=== PATIENT | male | born 1940 | race Two or more races ===

== ENCOUNTER 2023-06-15 12:39 | Emergency (ER) | payer OTHER ==
[~2023-06-15] VITALS: Ht 170.2 cm; Wt 71.7 kg
[2023-06-15] MEDS ORDERED: XARELTO15 MG PO (12:48)
[2023-06-15] MEDS ORDERED: TOPROL XL50 M1 PO (12:48)
[2023-06-15 13:29] LABS: HEMATOCRIT 46.5 % (39.0-48.0); HEMOGLOBIN 15.6 g/dL (13-16.00); MEAN CELL VOLUME 87.8 fL (80.0-100.00); MEAN CORPUSCULAR HEMOGLOBIN 29.5 pg (27.00-32.0); MEAN CORPUSCULAR HGB CONC 33.5 g/dl (32.0-36.0); PLATELET COUNT 257 K/uL (150-450); RED CELL DISTRIBUTION WIDTH 13.5 % (11.5-14.5)
[2023-06-15 13:53] LABS: INR 1.3
[2023-06-15 14:00] LABS: PARTIAL THROMBOPLASTIN TIME 43.6 SECONDS (22.0-34.0); PROTHROMBIN TIME 13.4 SECONDS (9.0-11.5)
[2023-06-15 14:19] LABS: BILIRUBIN TOTAL 0.49 mg/dL (0.3-1.2); CREATININE SERUM 1.38 mg/dL (0.70-1.30); GFR 49.09; POTASSIUM 4.89 mEq/L (3.5-5.1)
[2023-06-15 15:21] LABS: URINE APPEARANCE Clear; URINE BILIRRUBIN Negative (NEGATIVE); URINE BLOOD Negative; URINE COLOR Yellow; URINE GLUCOSE Negative (NEGATIVE); URINE LEUKOCYTE Negative; URINE NITRATE Negative; URINE PROTEIN Negative (NEGATIVE); URINE UROBILINOGEN 0.2 E.U./dl
[2023-06-15 15:25] LABS: URINE RBC 20.9 uL (0.0-20.8); URINE WBC 5.3 uL (0.0-23.2)
[2023-06-15 16:15] LABS: URINE BACTERIA 3.7 uL (0.0-1933); URINE EPITHELIAL CELLS 0.4 uL (0.0-38.8)
[2023-06-15] MEDS ORDERED: ASPIRIN 81 MG TAB.CHEW PO ONE (16:15)
== END 2023-06-15 16:35 | disposition home or self-care (01) ==
LOC: ER 12:39
PROVIDERS: General Practice
DX: G45.9 Transient cerebral ischemic attack, unspecified (principal); R42 Dizziness and giddiness; I10 Essential (primary) hypertension

== ENCOUNTER 2023-06-18 14:19 | Outpatient (CLI) | payer OTHER ==
[~2023-06-18 14:19] MED LIST: TOPROL XL50 M1 PO; XARELTO15 MG PO
== END 2023-06-18 14:26 | disposition home or self-care (01) ==
LOC: RAD 14:19
PROVIDERS: ATTEND Internal Medicine Cardiovascular Disease
DX: I69.359 Hemiplegia and hemiparesis following cerebral infarction affecting unspecified side (principal)
CPT/HCPCS: 70551

== ENCOUNTER → 2024-07-06 | Outpatient (CLI) | payer OTHER | END | disposition home or self-care (01) | LOC: NUCLEAR 08:47 | PROVIDERS: ATTEND Psychiatry & Neurology Neurology | DX: I63.033 Cerebral infarction due to thrombosis of bilateral carotid arteries (principal); I63.233 Cerebral infarction due to unspecified occlusion or stenosis of bilateral carotid arteries ==